=== PATIENT | female | born 2000 | race Caucasian/White ===

== ENCOUNTER 2021-01-02 18:58 | Emergency (ER) | payer OTHER ==
[~2021-01-02] VITALS: Ht 165.1 cm; Wt 56.8 kg
[2021-01-02] MEDS ORDERED: LIDOCAINE 1% 10 ML VIAL SQ ONE (20:30)
[2021-01-02 20:43] VITALS: BP 114/68
== END 2021-01-02 21:01 | disposition home or self-care (01) ==
LOC: EMS 18:59
DX: S61.217A Laceration without foreign body of left little finger without damage to nail, initial encounter (principal); W45.8XXA Other foreign body or object entering through skin, initial encounter; Y93.89 Activity, other specified; Y92.89 Other specified places as the place of occurrence of the external cause; Y99.8 Other external cause status
CPT/HCPCS: 12001; 99283; J3490

== ENCOUNTER 2021-06-15 17:04 | Emergency (ER) | payer OTHER ==
[~2021-06-15] VITALS: Ht 165.1 cm; Wt 50.0 kg
[2021-06-15 17:49] VITALS: BP 94/52
[2021-06-15] MEDS ORDERED: SODIUM CHLORIDE 0.9% 1,000 ML IV ONE (18:00)
[2021-06-15] MEDS ORDERED: KETOROLAC TROMETHAMINE 30 MG/ML VIAL IVP ONE (18:00)
[2021-06-15] MEDS ORDERED: ONDANSETRON HCL 4 MG/2 ML VIAL IVP ONE (18:00)
[2021-06-15 18:03] LABS: BASOPHILS % (AUTO) 0.5 % (0.0-2.0); EOSINOPHILS % (AUTO) 0.7 % (1.0-6.0); HEMATOCRIT 34.9 % (36-46); HEMOGLOBIN 11.7 g/dL (12.0-16.0); LYMPHOCYTES # (AUTO) 1.3 K/uL (1.0-4.8); LYMPHOCYTES % (AUTO) 33.2 % (22.0-44.0); MEAN CORPUSCULAR HEMOGLOBIN 29.6 pg (26.0-34.0); MEAN CORPUSCULAR HGB CONC 33.6 G/dL (31.0-37.0); MEAN CORPUSCULAR VOLUME 88 fL (80-100); MONOCYTES # (AUTO) 0.3 K/uL (0.1-1.0); MONOCYTES % (AUTO) 8.5 % (2.0-9.0); NEUTROPHILS # (AUTO) 2.3 K/uL (1.8-7.7); NEUTROPHILS % (AUTO) 57.1 % (40.0-70.0); PLATELET COUNT (AUTO) 235 K/uL (150-450); RED BLOOD CELL COUNT(AUTO) 3.96 MIL/uL (4.00-5.20); RED CELL DISTRIBUTION WIDTH 13.5 % (11.5-14.5)
[2021-06-15 18:04] LABS: COVID AG,FIA SOURCE NASOPHARYNGEAL
[2021-06-15 18:15] LABS: ANION GAP 8 mmol/L (8-16); CALCIUM, TOTAL 8.7 mg/dL (8.8-10.5); CARBON DIOXIDE 29 mmol/L (22-29); CHLORIDE 101 mmol/L (98-107); GLOMERULAR FILTR. RATE CALC > 60 mL/min (>60); GLUCOSE,RANDOM 80 mg/dL (70-110); POTASSIUM 3.6 mmol/L (3.5-5.1); SODIUM SERUM 138 mmol/L (136-145); UREA NITROGEN, BLOOD 16 mg/dL (7-18)
[2021-06-15 18:26] LABS: HCG,QUANTITATIVE < 1 mIU/mL (0-6)
== END 2021-06-15 19:21 | disposition home or self-care (01) ==
LOC: EMS 17:04
DX: B34.9 Viral infection, unspecified (principal); Z20.822 Contact with and (suspected) exposure to COVID-19
CPT/HCPCS: 36415; 80048; 84702; 85025; 87426; 96361; 96374; 96375; 99284; J1885; J2405; J7030

== ENCOUNTER 2021-09-08 19:56 | Emergency (ER) | payer OTHER ==
[~2021-09-08] VITALS: Ht 160 cm; Wt 54.5 kg
[2021-09-08 19:58] VITALS: BP 100/61
[2021-09-08 21:04] LABS: COVID AG,FIA SOURCE NASAL SWAB
[2021-09-08] MEDS ORDERED: GuaiFENesin/D-METHORPHAN [SUGAR-FREE] 200-20MG/10 ML SYRUP UDCUP PO ONE (21:30)
[2021-09-08] MEDS ORDERED: ACETAMINOPHEN 500 MG TABLET PO ONE (21:30)
[2021-09-08] MEDS ORDERED: ONDANSETRON HCL 4 MG TABLET PO ONE (21:30)
[2021-09-08] MEDS ORDERED: GUAIFDM PO (22:01)
[2021-09-08] MEDS ORDERED: IBUP-1554 PO (22:01)
[2021-09-08] MEDS ORDERED: ACET-2080 PO (22:01)
== END 2021-09-08 23:08 | disposition home or self-care (01) ==
LOC: EMS 19:58
DX: J02.9 Acute pharyngitis, unspecified (principal); Z20.822 Contact with and (suspected) exposure to COVID-19; J06.9 Acute upper respiratory infection, unspecified; R42 Dizziness and giddiness; R06.7 Sneezing; R49.0 Dysphonia
CPT/HCPCS: 81025; 87426; 99284; Q0162